=== PATIENT | female | born 1960 | race Caucasian/White ===

== ENCOUNTER → 2019-05-26 | Outpatient (CLI) | payer OTHER ==
[~2019-05-26] MED LIST: AMLODIPINE BESYL5 MG; BUPROPION XL150 MG; CELEXA40 MG; CRESTOR20 MG; FISH OIL 1,0001 EAC5; HYDROCHLOROTHIA25 M2; LISINOPRIL40 MG; LOW DOSE ASPIRI81 M1; MELOXICAM7.5 MG; METFORMIN; PROTONIX40 M2
== END ==
LOC: CAT 10:52
DX: Z13.6 Encounter for screening for cardiovascular disorders (principal); E78.00 Pure hypercholesterolemia, unspecified; I25.10 Atherosclerotic heart disease of native coronary artery without angina pectoris

== ENCOUNTER → 2021-06-21 | Outpatient (CLI) | payer BC, OTHER | LOC: CAT 10:37 | PROVIDERS: ATTEND Nurse Practitioner | DX: Z12.2 Encounter for screening for malignant neoplasm of respiratory organs (principal); Z87.891 Personal history of nicotine dependence ==